=== PATIENT | male | born 1990 | race Caucasian/White ===

== ENCOUNTER 2016-08-02 11:35 | Emergency (ER) | payer OTHER ==
[~2016-08-02] VITALS: Ht 182.9 cm; Wt 131.0 kg
[2016-08-02 11:38] VITALS: TEMP 36.7; Ht 182.9 cm; Wt 131.0 kg
[2016-08-02] MEDS ORDERED: SODIUM CHLORIDE 0.9% 1000ML 1,000 ML IV STA (12:12)
[2016-08-02] MEDS ORDERED: ATOR-24 PO (12:22)
[2016-08-02] MEDS ORDERED: LEVO125T72 PO (12:22)
[2016-08-02 12:29] LABS: BASO % 0.2 %; BASO ABS # 0.02 K/uL (0-0.2); COMPLETE YES; EOS % 2.9 %; HEMATOCRIT 46.1 % (42-52); IG% 0.2 %; LYMPH % 39.1 %; LYMPH ABS # 3.62 K/uL (1.2-3.4); MEAN CELL VOLUME 75.7 fL (80-100); MEAN CORPUSCULAR HEMOGLOBIN 23.6 pg (25-34); MEAN CORPUSCULAR HGB CONC 31.2 g/dl (32-36); MEAN PLATELET VOLUME 9.6 fL (7.4-10.4); MONO % 7.4 %; NEUT % 50.2 %; PLATELET COUNT 305 K/uL (130-400); RED BLOOD COUNT 6.09 M/uL (4.7-6.1); WHITE BLOOD COUNT 9.25 K/uL (4.8-10.8)
[2016-08-02] MEDS ORDERED: ATOR-22 PO (12:34)
--- NOTE | 2016-08-02 12:37 | DIAGNOSTIC IMAGING REPORT ---
CHEST ONE VIEW PORTABLE CLINICAL HISTORY: Chest pain. COMPARISON STUDY: No previous studies for comparison. FINDINGS: Lung volumes are normal. There is no pneumothorax or pleural effusion. Cardiac size is normal. Mediastinal contours are normal. There is no evidence of pulmonary edema. IMPRESSION: No acute cardiopulmonary findings. Electronically signed by: Sumanth Zepeda M.D. 08/02/2016 12:35 PM Dictated Date/Time: 08/02/2016 12:35 PM
[2016-08-02 12:42] LABS: ALT/SGPT 53 U/L (12-78); AST/SGOT 22 U/L (15-37); BLOOD UREA NITROGEN 9 mg/dl (7-18); BUN/CREATININE RATIO 8.5 (10-20); CARBON DIOXIDE 26 mmol/L (21-32); CHLORIDE 106 mmol/L (98-107); GLUCOSE 85 mg/dl (70-99); POTASSIUM 3.9 mmol/L (3.5-5.1); SODIUM 141 mmol/L (136-145)
[2016-08-02 12:44] LABS: ALKALINE PHOSPHATASE 83 U/L (45-117)
[2016-08-02 12:46] LABS: CALCIUM 9.2 mg/dl (8.5-10.1)
--- NOTE | 2016-08-02 13:16 | EMERGENCY ROOM VISIT NOTE ---
ED Visit Note First contact with patient: 11:50 The patient was seen and examined with Tee Roca PA-C. I agree with the history, physical and findings. Please see the note for disposition and details. The patient had nonexertional sharp chest pain. Blood work was unremarkable. Cardiac markers negative. ECG was nonischemic. The patient was bradycardic. He was low risk by Wells criteria and PERC negative.
[2016-08-02 15:05] VITALS: BP 107/75; PULSE 66; O2SAT 97
--- NOTE | 2016-08-02 17:01 | EMERGENCY ROOM VISIT NOTE ---
ED Visit Note First contact with patient: 11:50 Chief Complaint: Chest pain. History of Present Illness: Mr. Schroeder is a 26 year-old white female complaining of left-sided chest pain. Historically patient reports history of thyroid dysfunction, dyslipidemia and sleep apnea. His family history includes a fraternal grandfather with quadruple bypass and an PR dying at age 51. Patient reports a acute onset of left-sided chest pain that started approximately 30 minutes ago while sitting at his desk. Since that time the pain has been constant. He describes the pain as a stabbing sensation. He places his discomfort just superior to the left nipple. He rates his discomfort 4/10. His pain is nonradiating. He has not identified any aggravating or alleviating factors related to the pain. He has not taken any medications for pain prior to arrival at the hospital. Associated with his pain he reports he has a mild paresthesia in the left hand. Patient denies fevers, chills, sweats, skin eruptions, skin color changes, upper respiratory tract symptoms, wheezing, cough shortness of breath, orthopnea , dependent edema, previous clots, claudication, cramping, recent surgery/ inactivity/extended travel, abdominal pain, nausea, vomiting, diarrhea, constipation, rectal bleeding, black/tarry stools, urinary symptoms, back/flank pain. Review of Systems: As noted above in history of present illness. All body systems were reviewed and found to be negative as noted above. Past Medical History: As noted above. Current Medications: Synthroid, Lipitor. Allergies to Medications: Patient denies. Social History: Patient is currently employed; he feels safe in his home environment; he denies tobacco use. Physical Examination: Vital Signs: Date Time Temp Pulse Resp B/P Pulse Ox O2 Delivery O2 Flow Rate FiO2 08/02/16 15:05 66 18 107/75 97 Room Air 08/02/16 13:00 64 20 109/80 100 08/02/16 12:45 63 22 136/63 96 Room Air 08/02/16 12:06 59 08/02/16 11:38 36.7 59 16 141/88 95 GENERAL: 26-year-old male in no acute distress, nontoxic-appearing, afebrile and hemodynamically stable. NEUROLOGICAL: Awake, alert and oriented to person, place and time. Answering questions appropriately and following commands. Normal gait. Good hand eye coordination. SKIN: Warm, dry and pink. No soft tissue eruptions or trauma noted. HEENT: Atraumatic and normocephalic. PERRLA. Sclera white and conjunctiva pink. Oral cavity moist and pink. Pharynx is nonerythematous or edematous. Speech normal. No lymphadenopathy. Trachea midline. No jugular venous distention. No carotid bruits. BACK: No tenderness over the bony spine. No CVA tenderness. THORAX: Lungs sounds are clear to auscultation and equal bilaterally with symmetrical chest wall. No wheezing, rales or rhonchi. No crepitus, tenderness , subcutaneous air or deformities noted. HEART: Regular rate and rhythm. No gallops, rubs or murmurs are appreciated. No lifts, heaves or thrills. PMI is not displaced. ABDOMEN: Flat, soft and nontender. Positive bowel sounds in all quadrants. No guarding, rigidity or organomegaly. EXTREMITIES: Moves all extremities well on command and with purpose. All distal neurovascular statuses are intact and equal bilaterally. No dependent edema or calf tenderness/cords. ED Course: Patient is assessed as noted above. Laboratory Testing: Test 08/02/16 11:57 08/02/16 12:02 08/02/16 14:29 Range/Units White Blood Count 9.25 4.8-10.8 K/uL Red Blood Count 6.09 4.7-6.1 M/uL Hemoglobin 14.4 14.0-18.0 g/dL Hematocrit 46.1 42-52 % Mean Corpuscular Volume 75.7 80-100 fL Mean Corpuscular Hemoglobin 23.6 25-34 pg Mean Corpuscular Hemoglobin Concent 31.2 32-36 g/dl Platelet Count 305 130-400 K/uL Mean Platelet Volume 9.6 7.4-10.4 fL Neutrophils (%) (Auto) 50.2 % Lymphocytes (%) (Auto) 39.1 % Monocytes (%) (Auto) 7.4 % Eosinophils (%) (Auto) 2.9 % Basophils (%) (Auto) 0.2 % Neutrophils # (Auto) 4.64 1.4-6.5 K/uL Lymphocytes # (Auto) 3.62 1.2-3.4 K/uL Monocytes # (Auto) 0.68 0.11-0.59 K/uL Eosinophils # (Auto) 0.27 0-0.5 K/uL Basophils # (Auto) 0.02 0-0.2 K/uL RDW Standard Deviation 46.5 36.4-46.3 fL RDW Coefficient of Variation 16.8 11.5-14.5 % Immature Granulocyte % (Auto) 0.2 % Immature Granulocyte # (Auto) 0.02 0.00-0.02 K/uL Sodium Level 141 136-145 mmol/L Potassium Level 3.9 3.5-5.1 mmol/L Chloride Level 106 98-107 mmol/L Carbon Dioxide Level 26 21-32 mmol/L Anion Gap 9.0 3-11 mmol/L Blood Urea Nitrogen 9 7-18 mg/dl Creatinine 1.10 0.60-1.40 mg/dl Est Creatinine Clear Calc Drug Dose 142.5 ml/min Estimated GFR () 106.8 Estimated GFR (Non- 92.2 BUN/Creatinine Ratio 8.5 10-20 Random Glucose 85 70-99 mg/dl Calcium Level 9.2 8.5-10.1 mg/dl Total Bilirubin 0.4 0.2-1 mg/dl Direct Bilirubin < 0.1 0-0.2 mg/dl Aspartate Amino Transf (AST/SGOT) 22 15-37 U/L Alanine Aminotransferase (ALT/SGPT) 53 12-78 U/L Alkaline Phosphatase 83 45-117 U/L Total Protein 7.6 6.4-8.2 gm/dl Albumin 4.1 3.4-5.0 gm/dl Lipase 116 73-393 U/L Bedside Troponin I 0.000 0.000 0-0.045 ng/ml EKG #1: 1144: Was read by myself and reviewed with Dr. Gonsales and shows sinus bradycardia with ventricular rate of 57 bpm. Normal axis, intervals and complexes. No acute ST changes indicating ischemia, injury or infarction. EKG #2: 1422 was read by myself and reviewed with Dr. Gonsales and shows normal sinus rhythm with a ventricular rate of 60 bpm. Normal axis, intervals and complexes. No acute ST changes indicating ischemia, injury or infarction. This was compared to previous and no acute changes were noted. Chest X-Ray: Was read by myself and the radiologist showing no acute infiltrates , effusions or pneumothorax. Normal heart silhouette and bony anatomy. Patient was hydrated with normal saline; he refused pain medications. Patient was reassessed multiple times during his stay in the emergency department. Patient's case was reviewed with Dr. Gonsales; in apparently assessed the patient we agreed on diagnostic approach, treatment, disposition and plan. Patient was educated about tonight's findings and instructed on his treatment plan; he verbalizes understanding and agreement with this plan. Clinical Impression: Acute chest pain. Decision-Making: Initially my differential diagnosis I considered acute coronary syndrome, thoracic aneurysm, pneumothorax, pneumonia, pulmonary embolism, musculoskeletal disorder and other causes. Disposition: Patient discharged home in stable condition accompanied by male friend; prior to departure he was reassessed and subjectively reported he was feeling the same and rated his discomfort 4/10. Plan: Patient was encouraged use ibuprofen or acetaminophen as needed for pain. Patient was encouraged to follow-up with personal physician for recheck and possible referral to cardiology. Patient was encouraged return the ED for worsening symptoms, fevers, shortness of breath or any new/concerning symptoms.
== END 2016-08-02 15:10 | disposition home or self-care (01) ==
LOC: C.EDB 11:37
DX: R07.89 Other chest pain (principal); E78.5 Hyperlipidemia, unspecified; E07.9 Disorder of thyroid, unspecified; Z79.899 Other long term (current) drug therapy